=== PATIENT | female | born 2000 ===

== ENCOUNTER 2023-11-17 15:03 | Emergency (ER) | payer OTHER, SELFPAY ==
[2023-11-17 15:58] VITALS: BP 93/53; PULSE 80; RESP 17; TEMP 36.9; O2SAT 97; BMI 17.7
== END 2023-11-17 20:27 | disposition left against medical advice (07) ==
PROVIDERS: Emergency Provider Emergency Medicine
DX: R51.9 Headache, unspecified (principal)
CPT/HCPCS: 99282